=== PATIENT | female | born 1965 | race Caucasian/White ===

== ENCOUNTER 2022-11-28 09:25 | Day surgery (SDC) | payer OTHER ==
[~2022-11-28] VITALS: Ht 167.6 cm; Wt 77.5 kg
[~2022-11-28 09:25] MED LIST: ACYC400 PO; ALBU90OI INH; BUDEPRION XL PO; CONEST1.25 PO; FEXO180 PO; PRED10 PO
[2022-11-28] MEDS ORDERED: VALA500 (09:42)
[2022-11-28] MEDS ORDERED: LINZESS145 MCG (09:43)
[2022-11-28] MEDS ORDERED: NAPR500 (09:43)
[2022-11-28] MEDS ORDERED: GABA100 (09:43)
[2022-11-28 11:21] VITALS: BP 128/92
== END 2022-11-28 11:35 | disposition home or self-care (01) ==
LOC: ORSCSDS 09:25
PROVIDERS: Specialist
PROC: 0DJD8ZZ Inspection of Lower Intestinal Tract, Via Natural or Artificial Opening Endoscopic (ICD-10-PCS; principal; 2022-11-28 10:45)
DX: K62.5 Hemorrhage of anus and rectum (principal); K64.8 Other hemorrhoids; E78.5 Hyperlipidemia, unspecified; K59.04 Chronic idiopathic constipation; Z79.899 Other long term (current) drug therapy
CPT/HCPCS: J2704; J7120